=== PATIENT | female | born 1950 | race Caucasian/White ===

== ENCOUNTER 2020-02-28 16:35 | Inpatient (IN) | payer MEDICARE ==
[~2020-02-28] VITALS: Ht 165.1 cm; Wt 44.9 kg
--- NOTE | 2020-02-28 16:42 | NUR ---
Patient BIB pvt ambulance from [facility]. Patient on 5150 hold for GD. Manager Center made aware. no 1:1 sitter available. Safety precautions implented. s/r up x2. quiet environment provided. frequent visual checks done
--- NOTE | 2020-02-28 16:43 | NUR ---
Dr. Rosales at bedside for MSE
[2020-02-28] MEDS ORDERED: ZOLP5TAB8 PO (16:59)
[2020-02-28] MEDS ORDERED: SERT50TA PO (16:59)
[2020-02-28] MEDS ORDERED: LORA-258 PO (16:59)
--- NOTE | 2020-02-28 17:45 | NUR ---
Patient has been medically cleared
--- NOTE | 2020-02-28 19:00 | NUR ---
Report received from outgoing RN. Patient is resting in her rooom at this time. Side rails up x 2. Bed locked in position. Sleeping, with no signs of distress.
--- NOTE | 2020-02-28 19:35 | NUR ---
Received call from Nursing metalizing supervisor that pt will be going to MHU instead of GPS OV. Called MHU Charge to get bed, Received 141-B. Pending report while facilitating room changes in the unit. Receiving RN will call me back per Charge Nurse.
--- NOTE | 2020-02-28 20:45 | NUR ---
Followed up with U, Gave report to Mary SABILLON.
--- NOTE | 2020-02-28 21:10 | NUR ---
Manish SABILLON transferred pt to MHU via wheelchair in stable condition.
[2020-02-28] MEDS ORDERED: ACETAMINOPHEN 325 MG TABLET PO PRN (21:30)
[2020-02-28] MEDS ORDERED: MAG HYDROX/AL HYDROX/SIMETH 30 ML LIQUID UDC PO PRN (21:30)
[2020-02-28] MEDS ORDERED: CLONAZEPAM 0.5 MG TABLET PO PRN (21:30)
[2020-02-28] MEDS: METOPROLOL TARTRATE 25 MG TABLET PO SCH (21:56)
--- NOTE | 2020-02-28 22:26 | NUR ---
Admission note Admitted 69 year old female from ER. on 5150 hold up on 03/02/20 at 1250pm for GD. per hold and speaking to the , he stated that she stopped eating and drinking at home for a couple days so he called 911 and patient was brought to [facility] where they stated she was in and out of catatonic state. Upon face to face assessment, patient A/Ox2 answered question about name, but then sat with her eyes closed, not answering questions or signing paperwork. Explained all paperwork and the hold to her. Updated with patient permission. Per , he thinks it is stress because they have been caring for her parents and the same thing happened 2 years ago, he says she has not been admitted to a psychiatric hospital before. Patient was showered and brought to bed. Patient ambulated steadily, but is weak. Patient started answering some questions and ate food and took medications for elevated blood pressure. Pt educated regarding unit rules and expectations. Patient rights explained, Advisement and patient rights handbook given, Pt oriented to the unit, the phones, her room and roommate, and the bathroom. Q 15 minute safety checks initiated.
--- NOTE | 2020-02-28 23:20 | NUR ---
NSG/GPS Patient arrived to the unit from ER with a B/P of 168/110, HR 133. Physician tester electronic scale contacted, medication administered as ordered with effective outcome. B/P 145/105, HR 83. Will continue to monitor vital signs Q shift and prn.
[2020-02-29 07:55] LABS: BILIRUBIN,TOTAL 0.8 mg/dL (0.2-1.0); CREATININE 0.8 mg/dL (0.6-1.3); POTASSIUM 3.4 mmol/L (3.5-5.1); TOTAL PROTEIN, SERUM 7.7 g/dL (6.4-8.2)
[2020-02-29 08:01] VITALS: BP 145/94
[2020-02-29] MEDS: METOPROLOL TARTRATE 25 MG TABLET PO SCH ×2 (09:11→20:19)
--- NOTE | 2020-02-29 11:21 | NUR ---
Social Work Initial Discharge Planning: Per patient Nicola [phone], patient. currently living with and parents in [place]. Per patient. Nicola [phone], patient will discharge back to home with her parents and [address], [place] [address]. SW will continue to work with pt., family, and MD to ensure a safe and proper discharge plan.
--- NOTE | 2020-02-29 11:23 | NUR ---
Social Work Note/Family Contact: dimension mill worker spoke with patient's Nicola ([phone]) and collected collateral information for psychosocial assessment. Patient's Nicola ([phone]) stated that he and his recently moved to [place] and are living together with her parents. Patient's Nicola ([phone]) stated that patient can return home upon discharge [address], [place] [address]. Patient's Nicola ([phone]) stated that he has Power of Grubber for patient, dimension mill worker requested power of business attorney documents. Patient's Nicola ([phone]) stated that those documents are "currently in storage" due to move and that he will attempt to send documents. This conventional underwriter provided patient's fax and Email information to send the documents as soon as possible.
[2020-02-29] MEDS ORDERED: SERTRALINE HCL 50 MG TABLET PO SCH (13:00)
[2020-02-29] MEDS ORDERED: POTASSIUM CHLORIDE 20 MEQ TAB.PRT.SR PO ONE (13:30)
[2020-02-29 16:20] VITALS: BP 163/100
--- NOTE | 2020-02-29 21:00 | NUR ---
Received patient in the Hallway sitting in a leeann chair near the nursing station. Patient noted A/O x 1. she is calm upon approached. Pt was assisted to use the restroom. She was noted with unsteady gait. Mood is depressed, affect is flat. Pt is unable to have a meaningful conversation, her speech is low (she whispers) Pt was able to take all her QHS medication. V/S stable at this time. Pt is reassured for her safety. safety and fall precaution in place. will continue to monitor.
[2020-02-29 21:25] VITALS: BP 162/98
[2020-03-01] MEDS: TEMAZEPAM 7.5 MG CAPSULE PO PRN (00:54)
[2020-03-01 07:30] VITALS: BP 136/86
[2020-03-01] MEDS: METOPROLOL TARTRATE 25 MG TABLET PO SCH ×2 (08:52→22:21)
[2020-03-01] MEDS: SERTRALINE HCL 50 MG TABLET PO SCH (13:18)
[2020-03-01 15:14] VITALS: BP 151/93
[2020-03-01 20:42] VITALS: BP 148/87
[2020-03-01] MEDS: LORAZEPAM 0.5 MG TABLET PO PRN (22:21)
[2020-03-02 07:30] VITALS: BP 153/85
[2020-03-02] MEDS: METOPROLOL TARTRATE 25 MG TABLET PO SCH ×2 (09:33→20:12)
[2020-03-02] MEDS: LISINOPRIL 5 MG TABLET PO SCH (09:40)
[2020-03-02] MEDS: ENSURE ENLIVE (VAN) 240 ML LIQUID PO SCH ×2 (12:00→17:16)
[2020-03-02] MEDS: SERTRALINE HCL 50 MG TABLET PO SCH (13:03)
[2020-03-02 13:36] LABS: *BLOOD, URINE 2+ (NEGATIVE); *CLARITY,URINE SLIGHTLY CLOUDY (CLEAR); *COLOR,URINE YELLOW (YELLOW); *KETONES,URINE 2+ (NEGATIVE); LEUKOCYTE ESTERASE ,URINE 3+ (NEGATIVE); NITRITE, URINE NEGATIVE (NEGATIVE); UGLUCOSE TRACE (NEGATIVE)
[2020-03-02 14:57] LABS: *BILIRUBIN,URIN 2+ (NEGATIVE)
[2020-03-02 15:02] LABS: BACTERIA,URINE MODERATE /HPF (NONE SEEN); SQUAMOUS EPITHELIAL CELL,UR MODERATE /HPF (NONE SEEN)
[2020-03-02 16:00] VITALS: BP 131/76
--- NOTE | 2020-03-02 16:36 | NUR ---
called and left message to Dr. Brian Fraga regarding UA result waiting for reply will continue follow up
[2020-03-02 20:00] VITALS: BP 140/93
[2020-03-02] MEDS: LORAZEPAM 0.5 MG TABLET PO PRN (20:13)
[2020-03-02] MEDS: ATORVASTATIN 10 MG TABLET PO SCH (20:18)
[2020-03-02] MEDS: CEphaleXIN 500 MG CAPSULE PO SCH (21:08)
--- NOTE | 2020-03-03 00:15 | NUR ---
RECEIVED PATIENT IN A DANE CHAIR IN THE HALLWAY.MOOD IS DEPRESSED AND AFFECT IS FLAT.TALKS IN A LOW TONE AND NO MEANINGFUL CONVERSATION COULD BE HAD. ASSISTED TO THE RESTROOM AND GAIT IS UNSTEADY. LATER WENT TO BED BUT KEPT GETTING UP SEVERAL TIMES SHE SAYS "THE PLACE IS ON FIRE. I NEED TO GET OUT'.REASSURED SHE WAS IN SAFE HANDS.HOWEVER COMPLIANT WITH MEDICATIONS SHE TOOK THEM WITH APPLESAUCE.FALL AND SAFETY PRECAUTIONS IN PLACE.
[2020-03-03] MEDS: CEphaleXIN 500 MG CAPSULE PO SCH ×3 (06:09→21:23)
--- NOTE | 2020-03-03 06:29 | NUR ---
SHE SLEPT FOR APPROX.6:15 HOURS. MEDICATION COMPLIANT.
[2020-03-03 07:30] VITALS: BP 138/71
[2020-03-03] MEDS: ENSURE ENLIVE (VAN) 240 ML LIQUID PO SCH ×3 (08:00→17:12)
[2020-03-03] MEDS ORDERED: MEGESTROL ACETATE 400 MG/10 ML LIQUID UDC PO SCH (09:00)
[2020-03-03] MEDS: METOPROLOL TARTRATE 25 MG TABLET PO SCH ×2 (09:10→20:42)
[2020-03-03] MEDS: LISINOPRIL 5 MG TABLET PO SCH (09:11)
[2020-03-03 11:57] LABS: BASOPHILS % (AUTO) 0.3 % (0.0-2.0); EOSINOPHILS % (AUTO) 0.1 % (0.0-7.0); HEMATOCRIT 41.4 % (31.2-41.9); HEMOGLOBIN 13.8 g/dL (10.9-14.3); LYMPHOCYTES # (AUTO) 1.3 K/uL (20.0-40.0); LYMPHOCYTES % (AUTO) 15.1 % (20.5-51.5); MEAN CORPUSCULAR HEMOGLOBIN 30.9 uug (24.7-32.8); MEAN CORPUSCULAR HGB CONC 33 g/dL (32.3-35.6); MEAN CORPUSCULAR VOLUME 92.5 fL (75.5-95.3); MONOCYTES # (AUTO) 0.7 K/uL (2.0-10.0); NEUTROPHILS # (AUTO) 6.7 K/uL (1.8-8.9); NEUTROPHILS % (AUTO) 76.5 % (38.5-71.5); PLATELET COUNT (AUTO) 229 K/uL (179-408); RED BLOOD CELL COUNT(AUTO) 4.48 MIL/uL (3.63-4.92); WHITE BLOOD COUNT (AUTO) 8.8 K/uL (3.8-11.8)
[2020-03-03 11:58] LABS: CREATININE 0.9 mg/dL (0.6-1.3); MAGNESIUM 2.2 mg/dL (1.8-2.4); PHOSPHOROUS 3.6 mg/dL (2.5-4.9); POTASSIUM 3.3 mmol/L (3.5-5.1)
[2020-03-03] MEDS: SERTRALINE HCL 50 MG TABLET PO SCH (12:10)
[2020-03-03 15:06] VITALS: BP 124/76
[2020-03-03] MEDS: MEGESTROL ACETATE 20 MG TABLET PO SCH (17:12)
[2020-03-03 20:00] VITALS: BP 132/92
[2020-03-03] MEDS: ATORVASTATIN 10 MG TABLET PO SCH (20:41)
[2020-03-03] MEDS: TEMAZEPAM 7.5 MG CAPSULE PO PRN (23:19)
--- NOTE | 2020-03-04 01:33 | NUR ---
RECEIVED PATIENT IN HER ROOM. MOOD IS DEPRESSED AND AFFECT IS FLAT.TALKS IN A LOW TONE BUT SAID TO STAFF 'WHATEVER THEY TOLD YOU I SAID IT IS NOT TRUE'. SHE HOWEVER WILL NOT SAY WHAT. SHE LATER REQUESTED FOR A SLEEPING AID AT 23:20 HER ROOMMATE KEPT SNORING AND GOING BACK AND FORTH TO THE BATHROOM. SLEPT FAIRLY WELL AFTER THAT. COMPLIANT WITH MEDICATIONS. FALL AND SAFETY PRECAUTIONS IN PLACE WILL CONTINUE TO MONITOR.
[2020-03-04] MEDS: CEphaleXIN 500 MG CAPSULE PO SCH ×3 (06:19→21:50)
--- NOTE | 2020-03-04 06:48 | NUR ---
SLEPT APPROX.5:45 HOURS
[2020-03-04 08:00] VITALS: BP 97/62
[2020-03-04] MEDS: ENSURE ENLIVE (VAN) 240 ML LIQUID PO SCH ×3 (08:00→17:00)
[2020-03-04] MEDS: POTASSIUM CHLORIDE 20 MEQ TAB.PRT.SR PO ONE ×2 (08:30→09:04)
[2020-03-04] MEDS: METOPROLOL TARTRATE 25 MG TABLET PO SCH ×2 (08:55→20:28)
[2020-03-04] MEDS: MEGESTROL ACETATE 20 MG TABLET PO SCH ×3 (08:55→17:00)
[2020-03-04] MEDS: LISINOPRIL 5 MG TABLET PO SCH (08:56)
[2020-03-04] MEDS: risperiDONE-M 0.5 MG TAB.RAPDIS PO SCH ×2 (11:00→17:00)
[2020-03-04] MEDS: LORAZEPAM 0.5 MG TABLET PO SCH ×2 (11:15→17:00)
[2020-03-04] MEDS: SERTRALINE HCL 50 MG TABLET PO SCH (13:00)
--- NOTE | 2020-03-04 13:26 | NUR ---
Social Work Family Contact: piece worker spoke with patient's Nicola ([phone]) who stated that he wants patient back home upon discharge.
--- NOTE | 2020-03-04 14:00 | NUR ---
Pt is being catatonic. Pt is refusing to open her eyes. Pt's eyes were seen moving while being closed. Pt refuses her medications and food. Pt is refusing to talk. Pt was palpated, abdomen is not distended. VS are monitored.
--- NOTE | 2020-03-04 16:01 | NUR ---
Social Work Coordination of Care: This typewriter assembler contacted [facility] ([phone]) and spoke with Sharon calero who requested this typewriter assembler to fax ([phone]) patient's H & P psychiatric notes, progress notes, medication, and laboratory.
--- NOTE | 2020-03-04 16:25 | NUR ---
Social Work Coordination of Care: This film writer contacted [facility] and spoke with Mary ([phone]) admin who requested this film writer to fax ([phone]) patient's H & P psychiatric notes, progress notes, medication, and laboratory. Per Mary, she will review patient's clinicals and will contact this film writer back.
[2020-03-04 16:36] VITALS: BP 139/83
[2020-03-04] MEDS: ATORVASTATIN 10 MG TABLET PO SCH (20:28)
[2020-03-04 20:47] VITALS: BP 126/76
[2020-03-05] MEDS: CEphaleXIN 500 MG CAPSULE PO SCH ×3 (05:44→21:16)
--- NOTE | 2020-03-05 06:10 | NUR ---
GPS: Pt was catatonic through the night. Refused to open her eyes. Pt's eyes were seen moving while being closed. Pt was palpated, abdomen is not distended. this morning alert and oriented. assisted to use bathroom and back to bed. compliant with am po meds. VS are monitored. slept 7 hrs though the night.
--- NOTE | 2020-03-05 06:14 | NUR ---
patient drink use and ate some chocolate pudding.
[2020-03-05 07:30] VITALS: BP 151/88
--- NOTE | 2020-03-05 08:00 | NUR ---
received patient AOx1, patient isolative withdrawn , patient not eating her meal, patient paranoid and delusional, believes that somebody out there will kill her, seen by Dr. Patel, patient was encourage to eat and encourage to join the group, patient refused, patient compliant with medication needed prompting with taking meds,
[2020-03-05] MEDS: ENSURE ENLIVE (VAN) 240 ML LIQUID PO SCH ×3 (08:47→17:00)
[2020-03-05] MEDS: LORAZEPAM 0.5 MG TABLET PO SCH ×2 (09:25→16:24)
[2020-03-05] MEDS: METOPROLOL TARTRATE 25 MG TABLET PO SCH ×2 (09:25→20:31)
[2020-03-05] MEDS: risperiDONE-M 0.5 MG TAB.RAPDIS PO SCH (09:25)
[2020-03-05] MEDS: MEGESTROL ACETATE 20 MG TABLET PO SCH ×2 (09:26→16:24)
[2020-03-05] MEDS: LISINOPRIL 5 MG TABLET PO SCH (09:27)
[2020-03-05] MEDS: SERTRALINE HCL 50 MG TABLET PO SCH (12:19)
[2020-03-05 15:55] VITALS: BP 112/75
--- NOTE | 2020-03-05 18:28 | NUR ---
patient remain in her room and continuously isolative and withdrawn
--- NOTE | 2020-03-05 19:00 | NUR ---
RECEIVED PATIENT IN HER ROOM SEATED ON THE CHAIR, PATIENT ISOLATIVE, AND WITHDRAWN. PATIENT WAS ASKED IF SHE HAVING PAIN OR DISCOMFORT, BUT NO ANSWER, CONT TO MONITOR.
[2020-03-05 20:26] VITALS: BP 91/53
[2020-03-05] MEDS: BENZTROPINE MESYLATE 0.5 MG TABLET PO SCH (20:30)
[2020-03-05] MEDS: ATORVASTATIN 10 MG TABLET PO SCH (20:30)
[2020-03-05] MEDS ORDERED: risperiDONE-M 0.5 MG TAB.RAPDIS PO SCH (21:00)
--- NOTE | 2020-03-06 03:06 | NUR ---
PATIENT HAS EPISODES OF WEAKNESS, AND NEEDS TO BE ASSISTED BACK TO BED. V/S STABLE AT THIS TIME, PATIENT HAS A POOR PO INTAKE PART OF HER DIAGNOSIS, WILL ENCOURAGE TO EAT AND DRINK FLUIDS WHILE AWAKE AND DURING MEALS, CONT TO MONITOR.
[2020-03-06] MEDS: CEphaleXIN 500 MG CAPSULE PO SCH ×3 (05:38→21:09)
--- NOTE | 2020-03-06 06:06 | NUR ---
PATIENT AWAKE, NO COMPLAIN OF PAIN, PATIENT ASSISTED WITH TOILETING. PATIENT WENT BACK TO SLEEP, AND STAYED ON HER BED, NO FURTHER EPISODE OF WEAKNESS AT THIS TIME. CONT TO MONITOR.
[2020-03-06 07:30] VITALS: BP 102/57
[2020-03-06] MEDS: ENSURE ENLIVE (VAN) 240 ML LIQUID PO SCH ×3 (08:00→17:00)
[2020-03-06] MEDS: METOPROLOL TARTRATE 25 MG TABLET PO SCH ×2 (08:31→21:10)
[2020-03-06] MEDS: LISINOPRIL 5 MG TABLET PO SCH (09:00)
[2020-03-06] MEDS ORDERED: SERTRALINE HCL 50 MG TABLET PO SCH (09:00)
[2020-03-06] MEDS: LORAZEPAM 0.5 MG TABLET PO SCH (09:52)
[2020-03-06] MEDS: MEGESTROL ACETATE 20 MG TABLET PO SCH ×2 (09:53→17:00)
--- NOTE | 2020-03-06 11:21 | NUR ---
patient remains catatonic keeps eyes close non verbally responsive, vs taken b/p 103/65,P 78,r18 O2sat 92%.continue close monitoring.
[2020-03-06 11:52] LABS: BASOPHILS % (AUTO) 0.3 % (0.0-2.0); HEMATOCRIT 43.9 % (31.2-41.9); HEMOGLOBIN 14.6 g/dL (10.9-14.3); LYMPHOCYTES # (AUTO) 1.3 K/uL (20.0-40.0); LYMPHOCYTES % (AUTO) 12.2 % (20.5-51.5); MEAN CORPUSCULAR HEMOGLOBIN 30.7 uug (24.7-32.8); MEAN CORPUSCULAR HGB CONC 33 g/dL (32.3-35.6); MEAN CORPUSCULAR VOLUME 92.4 fL (75.5-95.3); MONOCYTES # (AUTO) 0.7 K/uL (2.0-10.0); MONOCYTES % (AUTO) 6.5 % (0.0-11.0); NEUTROPHILS # (AUTO) 8.8 K/uL (1.8-8.9); PLATELET COUNT (AUTO) 241 K/uL (179-408); RED BLOOD CELL COUNT(AUTO) 4.75 MIL/uL (3.63-4.92); WHITE BLOOD COUNT (AUTO) 10.9 K/uL (3.8-11.8)
[2020-03-06 12:04] LABS: BILIRUBIN,TOTAL 0.9 mg/dL (0.2-1.0); MAGNESIUM 2.3 mg/dL (1.8-2.4); POTASSIUM 3.4 mmol/L (3.5-5.1); TOTAL PROTEIN, SERUM 7.6 g/dL (6.4-8.2)
--- NOTE | 2020-03-06 13:22 | NUR ---
[facility] Program Contact: SW received a call from Sheron from [facility] ([phone]) who stated that after reviewing the notes that were sent for the pt they believe that the pt has been improving and should be allowed to return to her home.
--- NOTE | 2020-03-06 13:23 | NUR ---
Family Contact: ABRAN called the patient's Nicola ([phone]) and informed him that [facility] is not willing to accept the pt at this time. He stated that if [facility] believes that the pt can go home then he would like her to be discharged home. ABRAN stated that the psychiatrist from [facility] recommended a SNF. Pts stated that he wants to talk to the pt and get her consent before discharging her to a SNF. ABRAN stated that she will follow up.
[2020-03-06 16:00] VITALS: BP 119/81
[2020-03-06] MEDS ORDERED: POTASSIUM CHLORIDE 10 MEQ in IV D5/ 0.9% NACL 1,000 ML IV ONE (17:30)
[2020-03-06 20:24] VITALS: BP 134/84
[2020-03-06] MEDS: risperiDONE-M 0.5 MG TAB.RAPDIS PO SCH (21:09)
[2020-03-06] MEDS: ATORVASTATIN 10 MG TABLET PO SCH (21:09)
[2020-03-06] MEDS: BENZTROPINE MESYLATE 0.5 MG TABLET PO SCH (21:10)
--- NOTE | 2020-03-07 05:16 | NUR ---
PATIENT EYES CLOSE BUT RESPONSE TO VERBAL AND TACTILE STIMULI. REFUSED FOOD AND FLUIDS WHEN TRIED TO FEED THE PATIENT, PATIENT TOOK MOST OF THE MEDICATIONS. PATIENT ON IV HYDRATION NO COUGHING NO CHEST CONGESTION NOTED, TOLERATE WELL, CONT TO MONITOR.
[2020-03-07] MEDS: CEphaleXIN 500 MG CAPSULE PO SCH ×2 (06:24→13:33)
--- NOTE | 2020-03-07 06:48 | NUR ---
patient slept most of the night, tolerate iv hydration, no adverse reaction noted, cont to monitor.
[2020-03-07 07:30] VITALS: BP 119/77
[2020-03-07] MEDS: ENSURE ENLIVE (VAN) 240 ML LIQUID PO SCH ×3 (08:00→17:00)
[2020-03-07] MEDS: MEGESTROL ACETATE 20 MG TABLET PO SCH ×2 (08:41→16:35)
[2020-03-07] MEDS: METOPROLOL TARTRATE 25 MG TABLET PO SCH ×2 (08:42→21:12)
[2020-03-07] MEDS: LISINOPRIL 5 MG TABLET PO SCH (08:42)
--- NOTE | 2020-03-07 09:15 | NUR ---
Gps/Cash Processing Specialist-Encouraged to eat, prompted to nut picker her utensil to eat, had sips of ensure. compliant with am meds., patient interacting fairly well with staff.Safety reviewed, emphasized, bed alarm on
--- NOTE | 2020-03-07 11:22 | NUR ---
Gps/Chain Maker Machine- To CT head w/o contrast via wheel chair, pt. was well informed, ordered per Dr Patel
[2020-03-07] MEDS: DIVALPROEX SPRINKLE 125 MG CAP.SPRINK PO SCH ×2 (12:05→16:35)
[2020-03-07] MEDS: OLANZAPINE 2.5 MG TABLET PO SCH ×2 (12:05→16:35)
--- NOTE | 2020-03-07 15:40 | NUR ---
SNF Referrals: SW faxed a referral to the following two facilities: [facility] with attention to Bozena to the fax number: [phone] [facility] with attention to Paty to the fax number: [phone].
[2020-03-07 16:00] VITALS: BP 109/75
--- NOTE | 2020-03-07 17:38 | NUR ---
Gps/Senior Office Assistant- Kept patient up on her leeann-chair , stayed in her group therapy. Had been compliant with her routine meds. Ambulated to the bathroom with assist, reviewed safety, continue to monitor needs. Encouraged to feed self ind. after set up, food of her choice offered ,adequate fluid intake. Patient noted > interactions to the staff, smiles on occ.
--- NOTE | 2020-03-07 18:55 | NUR ---
Gps/Delinquent Tax Collector Assistant- Saline lock to right wrist dc'd, pt. request, baindaid applied. Bed alarm set for her bed. safety reviewed, emphasized. Noted some paranoia, pt. claimed someone is going around taking pictures ,they have small camera like a pen per pt.
[2020-03-07 20:00] VITALS: BP 105/66
[2020-03-07] MEDS: ATORVASTATIN 10 MG TABLET PO SCH (21:11)
[2020-03-07] MEDS: risperiDONE-M 0.5 MG TAB.RAPDIS PO SCH (21:12)
--- NOTE | 2020-03-08 06:27 | NUR ---
PT SLEPT 6 HOURS. PT IN NO ACUTE DISTRESS. PRESCRIBED MEDICATION GIVEN AND PT TOLERATED IT WELL. PT COOPERATIVE WITH CARE. SAFETY AND COMFORT PROVIDED. ALL NEEDS ARE MET. WILL ENDORSE TO INCOMING NURSE FOR CONTINUITY OF CARE.
[2020-03-08 07:30] VITALS: BP 132/60
[2020-03-08] MEDS: ENSURE ENLIVE (VAN) 240 ML LIQUID PO SCH ×3 (08:00→17:00)
[2020-03-08] MEDS: OLANZAPINE 2.5 MG TABLET PO SCH ×3 (08:41→16:42)
[2020-03-08] MEDS: DIVALPROEX SPRINKLE 125 MG CAP.SPRINK PO SCH ×2 (08:41→13:58)
[2020-03-08] MEDS: METOPROLOL TARTRATE 25 MG TABLET PO SCH ×2 (08:42→20:29)
[2020-03-08] MEDS: LISINOPRIL 5 MG TABLET PO SCH ×2 (08:44→14:01)
[2020-03-08] MEDS: MEGESTROL ACETATE 20 MG TABLET PO SCH ×2 (08:44→14:02)
[2020-03-08 09:08] LABS: BASOPHILS % (AUTO) 0.4 % (0.0-2.0); EOSINOPHILS % (AUTO) 0.2 % (0.0-7.0); HEMATOCRIT 37.1 % (31.2-41.9); HEMOGLOBIN 12.6 g/dL (10.9-14.3); LYMPHOCYTES # (AUTO) 1.4 K/uL (20.0-40.0); LYMPHOCYTES % (AUTO) 16.7 % (20.5-51.5); MEAN CORPUSCULAR HEMOGLOBIN 31.1 uug (24.7-32.8); MEAN CORPUSCULAR HGB CONC 34 g/dL (32.3-35.6); MEAN CORPUSCULAR VOLUME 91.9 fL (75.5-95.3); MONOCYTES # (AUTO) 0.8 K/uL (2.0-10.0); NEUTROPHILS # (AUTO) 6.1 K/uL (1.8-8.9); NEUTROPHILS % (AUTO) 73.7 % (38.5-71.5); PLATELET COUNT (AUTO) 154 K/uL (179-408); RED BLOOD CELL COUNT(AUTO) 4.04 MIL/uL (3.63-4.92); WHITE BLOOD COUNT (AUTO) 8.3 K/uL (3.8-11.8)
[2020-03-08 09:16] LABS: BILIRUBIN,TOTAL 0.7 mg/dL (0.2-1.0); CREATININE 0.9 mg/dL (0.6-1.3); MAGNESIUM 2.2 mg/dL (1.8-2.4); PHOSPHOROUS 3.3 mg/dL (2.5-4.9); POTASSIUM 3.1 mmol/L (3.5-5.1); TOTAL PROTEIN, SERUM 6.4 g/dL (6.4-8.2)
--- NOTE | 2020-03-08 10:45 | NUR ---
Gps/Exam Proctor- Texted Brayan DNP, informed of K+ 3.1 today .
[2020-03-08] MEDS ORDERED: POTASSIUM CHLORIDE 20 MEQ TAB.PRT.SR PO ONE ×2 (11:00→12:00)
--- NOTE | 2020-03-08 11:12 | NUR ---
SNF Contact: Bozena ([phone]), prevention coordinator from [facility], called the SW and stated that the pt was accepted to their facility upon discharge. SW stated that she will inform her once she has a discharge date.
--- NOTE | 2020-03-08 13:30 | NUR ---
ABRAN Group Note: ABRAN facilitated group therapy on 03/08/2020 at 1330. The group topic was discharge planning. ABRAN deemed the pt inappropriate for group programming at this time given her disorganized and confused mental state, catatonia, and selective mutism. ABRAN will continue to encourage the pt to attend group programming and engage in all aspects of treatment.
--- NOTE | 2020-03-08 14:03 | NUR ---
Gps/Manager Heart Failure- Tried to awakened pt. eyes closed, flickering , in no sign of any distress, washed face with cold wash cloth. Re -offered am routine meds., assisted with her apple juice, meds administered with apple sauce. Refusing to eat but fluids offered.Kept up on her leeann-chair by the Nurses station.
--- NOTE | 2020-03-08 15:30 | NUR ---
Gps/Screen Printing Machine Operator- Stayed up on her leeann-chair by the Nurses station , encouraged interactions with the staff. Patient's Nicola called, but patient refused to talk to him. Second dose of K+40 meq. was administered po. re offered , fluids offered and encouraged.
[2020-03-08 15:38] VITALS: BP 129/77
[2020-03-08] MEDS ORDERED: DIVALPROEX SPRINKLE 125 MG CAP.SPRINK PO SCH (17:00)
--- NOTE | 2020-03-08 18:12 | NUR ---
Gps/Necktie Stitcher- Not initiating to feed self, patient was fed , adequate fluid was given , encouraged. Ate about 50% of dinner, had 2 apple sauce with med.Eyes open from time to time answered to simple command
[2020-03-08] MEDS: ATORVASTATIN 10 MG TABLET PO SCH (20:29)
[2020-03-08 21:15] VITALS: BP 92/52
--- NOTE | 2020-03-09 00:15 | NUR ---
THIS NURSE RECEIVED HANDOFF REPORT FROM RAMANDEEP BRADSHAW. PT RECEIVED INTO CARE LAYING IN BED ASLEEP. PT HAS NO S/S OF ACUTE DISTRESS OR DISCOMFORT NOTED/OBSERVED BY THIS NURSE. ALL SAFETY, FALL, AND GPS PRECAUTIONS ARE IN PLACE. WILL CONTINUE TO MONITOR AND ASSESS.
--- NOTE | 2020-03-09 05:00 | NUR ---
Patient slept throughout night with no complaints of pain/discomfort verbalized or noted/observed by this nurse. Patient was compliant with care after this nurse received handoff from RAMANDEEP Allen. All safety, fall, and GPS/MHU precautions remain in place.
[2020-03-09 07:30] VITALS: BP 108/68
[2020-03-09] MEDS: ENSURE ENLIVE (VAN) 240 ML LIQUID PO SCH ×3 (08:00→17:00)
[2020-03-09] MEDS: MEGESTROL ACETATE 20 MG TABLET PO SCH ×2 (08:44→17:12)
[2020-03-09] MEDS: OLANZAPINE 2.5 MG TABLET PO SCH ×3 (08:46→17:12)
[2020-03-09] MEDS: METOPROLOL TARTRATE 25 MG TABLET PO SCH ×2 (08:48→22:00)
[2020-03-09] MEDS: DIVALPROEX SPRINKLE 125 MG CAP.SPRINK PO SCH ×2 (08:49→17:12)
--- NOTE | 2020-03-09 13:39 | NUR ---
Received patient this am in bed. Soft spoken and delayed with answers. Medication compliant with encouragement. Patient refused to eat breakfast. At lunch, policy writer got patient out of bed to the bathroom and then in the chair for lunch. Patient ate 75% of lunch and was given a shower afterwords. Patient has been refusing to take showers since March 02. Right after shower patient wanted to go back to bed. This patient is very isolative and withdrawn today. Monitoring for safety, behavioral issues, and encouraging food and fluid intake. No distress noted at this time, No SI or HI.
[2020-03-09 16:00] VITALS: BP 106/66
[2020-03-09 20:00] VITALS: BP 113/64
[2020-03-09] MEDS: ATORVASTATIN 10 MG TABLET PO SCH (22:25)
[2020-03-10 07:23] LABS: CREATININE 0.8 mg/dL (0.6-1.3); POTASSIUM 4.1 mmol/L (3.5-5.1)
[2020-03-10 07:30] VITALS: BP 112/53
[2020-03-10] MEDS: ENSURE ENLIVE (VAN) 240 ML LIQUID PO SCH ×3 (08:00→17:00)
[2020-03-10] MEDS: LISINOPRIL 5 MG TABLET PO SCH (08:40)
[2020-03-10] MEDS: MEGESTROL ACETATE 20 MG TABLET PO SCH ×2 (08:41→17:09)
[2020-03-10] MEDS: DIVALPROEX SPRINKLE 125 MG CAP.SPRINK PO SCH ×2 (08:41→17:09)
[2020-03-10] MEDS: METOPROLOL TARTRATE 25 MG TABLET PO SCH ×2 (08:41→20:34)
[2020-03-10] MEDS: OLANZAPINE 2.5 MG TABLET PO SCH ×3 (08:41→17:09)
[2020-03-10 12:03] LABS: *CLARITY,URINE CLOUDY (CLEAR); *COLOR,URINE YELLOW (YELLOW); *KETONES,URINE 1+ (NEGATIVE); LEUKOCYTE ESTERASE ,URINE NEGATIVE (NEGATIVE); NITRITE, URINE NEGATIVE (NEGATIVE); PH,URINE 6.5 (5.0-8.0); UGLUCOSE NEGATIVE (NEGATIVE)
[2020-03-10 12:36] LABS: *BILIRUBIN,URIN 1+ (NEGATIVE); *BLOOD, URINE TRACE (NEGATIVE)
[2020-03-10 12:37] LABS: BACTERIA,URINE FEW /HPF (NONE SEEN); SQUAMOUS EPITHELIAL CELL,UR FEW /HPF (NONE SEEN)
--- NOTE | 2020-03-10 15:58 | NUR ---
Received patient in bed pretending to be asleep and not responding to questions. Rewriter adjusted the head of the bed up and insisted patent open her eyes. Patient did and then was ambulated with assist to the bathroom, put in leeann chair and proceeded to eat 75% of the breakfast and 60% of her lunch. After that ,ambulated some more in the cowart with a walker. Patient is very withdrawn and does not engage in any meaningful conversations. Only short , basic, yes or no answers. Poor eye contact, and always wanting to be in bed sleeping. UA sent to lab per order. VS are stable and medication compliant. Monitoring for safety and changes in behavior. No acute distress at this time.
[2020-03-10 16:41] VITALS: BP 104/59
[2020-03-10 20:33] VITALS: BP 106/51
[2020-03-10] MEDS: ATORVASTATIN 10 MG TABLET PO SCH (20:34)
[2020-03-11 07:30] VITALS: BP 112/58
--- NOTE | 2020-03-11 08:00 | NUR ---
GPS: received patient AOx1, patient quiet, laying in her bed, patient having flat affect and blank stares, patient delusional and paranoid, patient refused her morning medication and had poor intake of her meals, seen by Dr. Patel , new orders made, will continue monitor
[2020-03-11] MEDS: OLANZAPINE 2.5 MG TABLET PO SCH ×3 (08:16→20:35)
[2020-03-11] MEDS: DIVALPROEX SPRINKLE 125 MG CAP.SPRINK PO SCH ×2 (08:16→09:00)
[2020-03-11] MEDS: METOPROLOL TARTRATE 25 MG TABLET PO SCH ×2 (08:17→20:35)
[2020-03-11] MEDS: LISINOPRIL 5 MG TABLET PO SCH (08:17)
[2020-03-11] MEDS: MEGESTROL ACETATE 20 MG TABLET PO SCH ×3 (08:18→16:16)
[2020-03-11] MEDS: ENSURE ENLIVE (VAN) 240 ML LIQUID PO SCH ×3 (08:19→17:16)
--- NOTE | 2020-03-11 11:14 | NUR ---
Family Contact: Patient's Nicola ([phone]) called the SW and stated that he knows that the pt is showing improvement and that he does not want to bring her home at this time and halt the progress. Pts stated that he understands that she needs to be admitted to a SNF and that it will be temporary so if [place].
[2020-03-11 12:31] LABS: BASOPHILS % (AUTO) 0.3 % (0.0-2.0); EOSINOPHILS % (AUTO) 0.6 % (0.0-7.0); HEMATOCRIT 36.7 % (31.2-41.9); HEMOGLOBIN 12.2 g/dL (10.9-14.3); MEAN CORPUSCULAR HEMOGLOBIN 30.9 uug (24.7-32.8); MEAN CORPUSCULAR HGB CONC 33 g/dL (32.3-35.6); MEAN CORPUSCULAR VOLUME 92.9 fL (75.5-95.3); MONOCYTES # (AUTO) 0.8 K/uL (2.0-10.0); MONOCYTES % (AUTO) 10.9 % (0.0-11.0); NEUTROPHILS # (AUTO) 5.3 K/uL (1.8-8.9); NEUTROPHILS % (AUTO) 74.2 % (38.5-71.5); PLATELET COUNT (AUTO) 173 K/uL (179-408); RED BLOOD CELL COUNT(AUTO) 3.96 MIL/uL (3.63-4.92); WHITE BLOOD COUNT (AUTO) 7.1 K/uL (3.8-11.8)
[2020-03-11 12:44] LABS: BILIRUBIN,TOTAL 0.4 mg/dL (0.2-1.0); CREATININE 0.9 mg/dL (0.6-1.3); POTASSIUM 4.1 mmol/L (3.5-5.1); TOTAL PROTEIN, SERUM 6.2 g/dL (6.4-8.2)
[2020-03-11 16:00] VITALS: BP 102/60
--- NOTE | 2020-03-11 16:26 | NUR ---
PATIENT TOOK MEDICATION IN THE AFTERNOON, PATIENT CONTINUOS TO BE ISOLATIVE AND WITHDRAWN
--- NOTE | 2020-03-11 18:21 | NUR ---
patient ate her dinner, no distress at this time
[2020-03-11 20:00] VITALS: BP 116/58
[2020-03-11] MEDS ORDERED: DIVALPROEX SPRINKLE 125 MG CAP.SPRINK PO SCH (20:00)
--- NOTE | 2020-03-11 20:30 | NUR ---
received patient in bed, asleep but easily arousable, patient took all po medications. patient still isolative, refused to participate with activity, cont to monitor.
[2020-03-11] MEDS: ATORVASTATIN 10 MG TABLET PO SCH (20:35)
--- NOTE | 2020-03-12 06:35 | NUR ---
patient slept most of the night, remains calm thru the night, cont to monitor.
[2020-03-12 07:30] VITALS: BP 130/73
[2020-03-12] MEDS: MEGESTROL ACETATE 20 MG TABLET PO SCH ×2 (08:28→16:50)
[2020-03-12] MEDS: ENSURE ENLIVE (VAN) 240 ML LIQUID PO SCH ×3 (08:28→16:51)
[2020-03-12] MEDS: METOPROLOL TARTRATE 25 MG TABLET PO SCH ×2 (08:29→20:30)
[2020-03-12] MEDS: LISINOPRIL 5 MG TABLET PO SCH (08:29)
--- NOTE | 2020-03-12 14:32 | NUR ---
Family Contact: SW called the patient's Nicola ([phone]) and inquired about whether or not the pt was accepted to [facility]. He provided the SW with the number for the person he was in contact with, Jos ([phone]), and the SW left a voicemail.
[2020-03-12 15:16] VITALS: BP 103/61
[2020-03-12 20:00] VITALS: BP 101/60
[2020-03-12] MEDS: OLANZAPINE 2.5 MG TABLET PO SCH (20:29)
[2020-03-12] MEDS: ATORVASTATIN 10 MG TABLET PO SCH (20:33)
--- NOTE | 2020-03-12 23:06 | NUR ---
Received pt sleeping comfortably in bed. Aroused easily to verbal stimuli. No acute distress noted. Denies pain/ discomfort. Pt took zyprexa PO, but refused Lipitor. Pt stated that she does not take cholesterol meds. Risks and benefits explained, pt still refused. Lopressor held due to decreased BP. Safety measures maintained. Will continue to monitor.
[2020-03-13 06:53] LABS: BASOPHILS % (AUTO) 0.4 % (0.0-2.0); EOSINOPHILS # (AUTO) 0.1 K/uL (0.0-0.7); EOSINOPHILS % (AUTO) 1.3 % (0.0-7.0); HEMATOCRIT 31.9 % (31.2-41.9); LYMPHOCYTES # (AUTO) 1.7 K/uL (20.0-40.0); LYMPHOCYTES % (AUTO) 24.6 % (20.5-51.5); MEAN CORPUSCULAR HEMOGLOBIN 31.5 uug (24.7-32.8); MEAN CORPUSCULAR HGB CONC 35 g/dL (32.3-35.6); MEAN CORPUSCULAR VOLUME 91.4 fL (75.5-95.3); MONOCYTES # (AUTO) 0.6 K/uL (2.0-10.0); MONOCYTES % (AUTO) 9.1 % (0.0-11.0); NEUTROPHILS # (AUTO) 4.5 K/uL (1.8-8.9); NEUTROPHILS % (AUTO) 64.6 % (38.5-71.5); PLATELET COUNT (AUTO) 197 K/uL (179-408); RED BLOOD CELL COUNT(AUTO) 3.49 MIL/uL (3.63-4.92); WHITE BLOOD COUNT (AUTO) 6.9 K/uL (3.8-11.8)
[2020-03-13 07:13] LABS: BILIRUBIN,TOTAL 0.4 mg/dL (0.2-1.0); CREATININE 0.7 mg/dL (0.6-1.3); MAGNESIUM 1.9 mg/dL (1.8-2.4); PHOSPHOROUS 4.2 mg/dL (2.5-4.9); POTASSIUM 3.8 mmol/L (3.5-5.1); TOTAL PROTEIN, SERUM 5.9 g/dL (6.4-8.2)
[2020-03-13 07:30] VITALS: BP 113/66
[2020-03-13 07:31] LABS: THYROID STIMULATING HORMONE 1.868 mIU/mL (0.358-3.740)
[2020-03-13] MEDS: MEGESTROL ACETATE 20 MG TABLET PO SCH ×3 (08:32→17:00)
[2020-03-13] MEDS: METOPROLOL TARTRATE 25 MG TABLET PO SCH ×3 (08:33→21:00)
[2020-03-13] MEDS: LISINOPRIL 5 MG TABLET PO SCH (08:33)
[2020-03-13] MEDS: ENSURE ENLIVE (VAN) 240 ML LIQUID PO SCH ×3 (08:34→17:22)
--- NOTE | 2020-03-13 09:00 | NUR ---
patient yecenia garnett stated she eats alaayush, medication wasted per facility policy Addendum: 03/13/20 at 1620 by LEYDA BROWN RN, RN lisinopril wasted as well, not administered for blood pressure i Addendum: 03/13/20 at 1622 by LEYDA BROWN RN, RN error in documenting, lisinopril is administered, metorprolol is not administered, returned to pharmacy
--- NOTE | 2020-03-13 13:24 | NUR ---
Family Contact: ABRAN called the patient's Nicola ([phone]) and informed him that the SW has been unable to make contact with Michele at [facility]. He stated that he will follow up and provide the SW phone number to the facility.
--- NOTE | 2020-03-13 15:56 | NUR ---
Family Contact: SW called the patient's Nicola ([phone]) and informed him that the pt is not being discharged tomorrow because there is no discharge order.
[2020-03-13 16:00] VITALS: BP 136/74
--- NOTE | 2020-03-13 18:41 | NUR ---
no distress noted, denied suicidal thoughts, compliant with meds
--- NOTE | 2020-03-13 19:29 | NUR ---
report given to night nurse
[2020-03-13] MEDS ORDERED: OLANZAPINE 2.5 MG TABLET PO SCH (20:00)
[2020-03-13 20:35] VITALS: BP 123/62
[2020-03-13] MEDS: ATORVASTATIN 10 MG TABLET PO SCH (21:00)
--- NOTE | 2020-03-14 06:21 | NUR ---
Pt slept 8.0 hrs. On BRP with standby assistance. Stayed in bed through the night. Refused night medications, explained the importance. Offered 2x but still refused, saying she will need to discuss these medications with her and doctor.
[2020-03-14 07:30] VITALS: BP 124/72
[2020-03-14] MEDS: ENSURE ENLIVE (VAN) 240 ML LIQUID PO SCH ×2 (08:00→12:00)
[2020-03-14] MEDS: MEGESTROL ACETATE 20 MG TABLET PO SCH (08:33)
[2020-03-14] MEDS: METOPROLOL TARTRATE 25 MG TABLET PO SCH (08:33)
[2020-03-14] MEDS: LISINOPRIL 5 MG TABLET PO SCH (08:34)
--- NOTE | 2020-03-14 09:45 | NUR ---
Gps/Hi Lo Driver- Noted patient eating better, but refused to drink ensure, claimed she had enough of it. Compliant with am routine meds. Patient ambulating on the hallway, w/o any devices, gait fairly steady . Encouraged to attend her group therapy, fairly interactive when engaged , smiles at times
--- NOTE | 2020-03-14 12:41 | NUR ---
Family Contact: SW called the patient's Nicola ([phone]) and informed him that the pt can be discharged either today or tomorrow and the pts stated that he will arrive to the unit tomorrow at around 11AM.
--- NOTE | 2020-03-14 12:52 | NUR ---
Family Contact: Patient's Nicola ([phone]) called the SW back and stated that he was able to find someone to cover for him so he will come down and picker the pt today at around 5-6pm.
--- NOTE | 2020-03-14 14:14 | NUR ---
Gps/Social Work Msw- Called Nicola ( @ [phone]) clarify if patient is getting the same medications at home , claimed he does not remember, patient manage own medications. Asked patient per , Salud claimed she never taken any medications at home before, (reviewed routine medications ) Per ok to use [facility] [address] [place] [address]. [id number] .
--- NOTE | 2020-03-14 14:17 | NUR ---
Physician Contact: ABRAN called Dr. Riggs ([phone]) and spoke to him directly about scheduling an appointment for the pt post discharge. He stated that he is aware of this patient and will cindy the patient an appointment for the following week as soon as the pts or the pt herself call to schedule the appointment.
[2020-03-14 15:31] VITALS: BP 105/59
[2020-03-14] MEDS ORDERED: METO25TA6 PO (15:53)
[2020-03-14] MEDS ORDERED: MEGE20TA5 PO (15:53)
[2020-03-14] MEDS ORDERED: LISI-607 PO (15:53)
[2020-03-14] MEDS ORDERED: ATOR10TA PO (15:53)
--- NOTE | 2020-03-14 16:09 | NUR ---
Discharge Note: Pt was discharged to her home located at [address] , [place] [address]; . Pt was picked up by her , Nicola ([phone]), around 5-6pm. Upon discharge, the pt appeared to be in a euthymic mood and presented with a calm affect. Pt appeared to be alert and oriented x4 (time, place, self and situation). Pt denied both suicidal and homicidal ideation as well as auditory and visual hallucinations. Pt appeared to be ambulatory with a steady gait and appeared to be well groomed and dressed. Pt will be under the care of her psychiatrist, Dr. Riggs, located at [address] [place] [address]; ([phone]); fax: ([phone]). SW spoke to the MD himself and he stated that he is aware of this pt and would like the pt to call to make the appointment for next week. He stated that he will provide her with an appointment for the following week once he receives a call. Pt will also be under the care of her humanities instructor, Dr. Brown, located at [address] [place], [address]; ; fax: ([phone]). Pt has an appointment for 03/29/20 at 9AM.
--- NOTE | 2020-03-14 16:42 | NUR ---
Gps/Alba Petersen () in to chart picker patient, reviewed discharge instructions, safety emphasized,skin care, nutritional needs, prescriptions/medications , safety emphasized, as well as follow up with her Doctors (Coal Mine Inspector and Psychiatrist as recommended) Both verbalized understanding.All belonging given back to patient. In good spirit with no new complaints noted.
== END 2020-03-14 16:48 | disposition home or self-care (01) | DRG 885 ==
LOC: ER 16:40 → GPS 20:49
PROVIDERS: ADMIT Psychiatry & Neurology Psychosomatic Medicine; ATTEND Internal Medicine
DX: F33.3 Major depressive disorder, recurrent, severe with psychotic symptoms (principal); N17.0 Acute kidney failure with tubular necrosis; Z68.1 Body mass index [BMI] 19.9 or less, adult; N39.0 Urinary tract infection, site not specified; E87.0 Hyperosmolality and hypernatremia; E44.0 Moderate protein-calorie malnutrition; E78.5 Hyperlipidemia, unspecified; E87.6 Hypokalemia; M81.0 Age-related osteoporosis without current pathological fracture; M19.90 Unspecified osteoarthritis, unspecified site; R62.7 Adult failure to thrive; I10 Essential (primary) hypertension; Z86.73 Personal history of transient ischemic attack (TIA), and cerebral infarction without residual deficits; F41.9 Anxiety disorder, unspecified; F03.90 Unspecified dementia, unspecified severity, without behavioral disturbance, psychotic disturbance, mood disturbance, and anxiety; M62.50 Muscle wasting and atrophy, not elsewhere classified, unspecified site; M85.80 Other specified disorders of bone density and structure, unspecified site; F39 Unspecified mood [affective] disorder; E86.1 Hypovolemia
CPT/HCPCS: 36415; 70450; 71045; 83735; 84100; 84443; 85025; 87086; 93005; J3480; J7042; J8999

== ENCOUNTER 2021-11-07 23:42 | Inpatient (IN) | payer MEDICARE ==
[~2021-11-07] VITALS: Ht 165.1 cm; Wt 44.9 kg
[~2021-11-07 23:42] MED LIST: ATOR10TA PO; LISI-782 PO; MEGE20TA4 PO; METO25TA6 PO
--- NOTE | 2021-11-07 23:50 | NUR ---
Pt BIB ambulance for Medical Clearence. No s/s distress. Denies SOB or chest pain. Able to ambulate without assistance.
--- NOTE | 2021-11-07 23:55 | NUR ---
Dr. Wilkes at bedside for MSE
--- NOTE | 2021-11-08 02:13 | NUR ---
Report given to Hilario JEAN
--- NOTE | 2021-11-08 03:36 | NUR ---
Pt. admitted to MHU bed 145B, under care of Dr. Lizarraga and Stu HILL. Belongs List completed Transported via wheelchair. No acute distress noted. Denies pain or SOB. LOC unchanged.
[2021-11-08 04:05] VITALS: BP 140/76
[2021-11-08] MEDS ORDERED: TEMAZEPAM 7.5 MG CAPSULE PO PRN (04:15)
[2021-11-08] MEDS ORDERED: ACETAMINOPHEN 325 MG TABLET PO PRN (04:15)
[2021-11-08] MEDS ORDERED: CLONAZEPAM 0.5 MG TABLET PO SCH (04:15)
[2021-11-08] MEDS ORDERED: MAG HYDROX/AL HYDROX/SIMETH 30 ML LIQUID UDC PO PRN (04:15)
[2021-11-08] MEDS ORDERED: MAGNESIUM HYDROXIDE 30 ML LIQUID UDC PO PRN (04:15)
[2021-11-08] MEDS ORDERED: CLONAZEPAM 0.5 MG TABLET PO PRN (05:36)
--- NOTE | 2021-11-08 07:20 | NUR ---
received from the emergency room on a 72 hour hold for gravely disabled. according to the hold and chart, pt awoled from home. found her undressed from the waist down on an overpass. per spouse, 6 days prior, she had a mental breakdown, with severe anxiety, and auditory and visual hallucinations. Upon arrival, she wa salert and oriented x 3, but wanted to sleep, and would not cooperate with admission, or sign any papers.
[2021-11-08 07:30] VITALS: BP 150/76
--- NOTE | 2021-11-08 08:00 | NUR ---
Gps/Blow Torch Burner- Received patient in bed , awake, in no sign of any distress, flat affect, not interactive , answers to simple yes and no. Fluids offered , encouraged. has poor intake, no appetite per pt. Denies any plan to hurt self , flat guarded . Refusing to get oob,
[2021-11-08 16:00] VITALS: BP 155/86
[2021-11-08 20:00] VITALS: BP 158/83
[2021-11-08] MEDS: OLANZAPINE 5 MG TABLET PO SCH (20:35)
--- NOTE | 2021-11-09 06:53 | NUR ---
GPS: Remain confused and disoriented but cooperative with meds and care. occ wonder around in the unit. slept 5.30 hrs through the night.
[2021-11-09 08:14] VITALS: BP 158/94
[2021-11-09 08:25] LABS: BILIRUBIN,TOTAL 0.6 mg/dL (0.2-1.0); CREATININE 0.9 mg/dL (0.6-1.3); POTASSIUM 3.2 mmol/L (3.5-5.1); TOTAL PROTEIN, SERUM 6.7 g/dL (6.4-8.2)
--- NOTE | 2021-11-09 09:31 | NUR ---
Gps/Student Accounts Coordinator- In bed , not interactive, eyes closed flickering, refusing to talk., guarded . Refused breakfast, fluids offered and encouraged.
[2021-11-09] MEDS ORDERED: POTASSIUM CHLORIDE 20 MEQ TAB.PRT.SR PO ONE (10:00)
[2021-11-09] MEDS ORDERED: POTASSIUM CHLORIDE 20 MEQ TAB.PRT.SR PO SCH (10:15)
--- NOTE | 2021-11-09 12:46 | NUR ---
Gps/Alba Petersen (pt's ) called wants to visit patient, this pm, informed patient had been quiet, not interactive, refusing to eat, refusing to open eye, refusing to eat, offered to be fed , refused, no interactions noted
[2021-11-09] MEDS: METOPROLOL TARTRATE 25 MG TABLET PO SCH ×2 (13:54→21:26)
--- NOTE | 2021-11-09 13:55 | NUR ---
Gps/Drilling Manager- Trying to get oob, ambulated to the bathroom gait unsteady, encouraged to open her eyes, voided, assisted patient with her ensure was able to consumed , enc. to feed self, fed with apple sauce. Continent of her bladder
[2021-11-09] MEDS: LISINOPRIL 5 MG TABLET PO SCH (13:59)
[2021-11-09 14:40] VITALS: BP 119/63
[2021-11-09 17:03] VITALS: BP 119/63
[2021-11-09] MEDS: MEGESTROL ACETATE 20 MG TABLET PO SCH (17:04)
[2021-11-09 20:22] VITALS: BP 132/66
[2021-11-09] MEDS: OLANZAPINE 5 MG TABLET PO SCH (21:26)
[2021-11-09] MEDS: ATORVASTATIN 10 MG TABLET PO SCH (21:27)
[2021-11-10 08:06] VITALS: BP 142/79
[2021-11-10] MEDS: METOPROLOL TARTRATE 25 MG TABLET PO SCH ×2 (08:50→21:54)
[2021-11-10] MEDS: MEGESTROL ACETATE 20 MG TABLET PO SCH ×2 (08:50→16:46)
[2021-11-10] MEDS: LISINOPRIL 5 MG TABLET PO SCH (08:51)
[2021-11-10 11:13] LABS: HEMATOCRIT 38.3 % (31.2-41.9); MEAN CORPUSCULAR HEMOGLOBIN 31.5 uug (24.7-32.8); MEAN CORPUSCULAR VOLUME 93.9 fL (75.5-95.3); PLATELET COUNT (AUTO) 239 K/uL (179-408)
[2021-11-10 13:07] LABS: BILIRUBIN,TOTAL 0.5 mg/dL (0.2-1.0); CREATININE 0.7 mg/dL (0.6-1.3); POTASSIUM 3.5 mmol/L (3.5-5.1); TOTAL PROTEIN, SERUM 6.8 g/dL (6.4-8.2)
[2021-11-10 13:31] LABS: THYROID STIMULATING HORMONE 1.672 mIU/mL (0.358-3.740)
--- NOTE | 2021-11-10 14:44 | NUR ---
ABRAN Initial Discharge Plan: Pt was brought to [facility] on a 5150 hold due to increased paranoia, auditory and visual hallucinations. ABRAN contacted pt's , Nicola [phone] who stated that pt will return home under his care. Nicola stated he will provide transportation for the pt upon discharge. Nicola stated he will be looking for an outpatient psychiatrist and does not require the SW's assistance with with outpatient therapeutic services upon discharge. ABRAN will continue to work with pt, family and MD to ensure a safe and proper discharge plan.
--- NOTE | 2021-11-10 14:45 | NUR ---
ABRAN Admit Source: Pt was brought to [facility] on a 5150 hold due to increased paranoia, auditory and visual hallucinations. ABRAN contacted pt's , Nicola [phone] who stated that pt will return home under his care. Nicola stated he will provide transportation for the pt upon discharge. Nicola stated he will be looking for an outpatient psychiatrist and does not require the SW's assistance with with outpatient therapeutic services upon discharge. ABRAN will continue to work with pt, family and MD to ensure a safe and proper discharge plan.
[2021-11-10 16:14] VITALS: BP 131/74
[2021-11-10] MEDS: ENSURE ENLIVE (VAN) 240 ML LIQUID PO SCH (16:47)
--- NOTE | 2021-11-10 19:08 | NUR ---
GPS: Nursing Notes: Thought Disorder: Patient is awake and responding to his name, selectively mute, compliant with her medications, refusing her to participate in therapeutic groups, refusing her CT scan of the head, refusing straight cath, resistant with nursing care, ambulatory by self, paranoid behavior, flat affect, unable to formulate a viable plan for self care, continue with treatment plan.
[2021-11-10 20:21] VITALS: BP 142/75
[2021-11-10] MEDS: ATORVASTATIN 10 MG TABLET PO SCH (21:54)
[2021-11-10] MEDS: OLANZAPINE 5 MG TABLET PO SCH (21:54)
--- NOTE | 2021-11-11 02:10 | NUR ---
VISUAL CHECKS AND ROUNDS MADE, PATIENT IS COMFORTABLY SLEEPING. WILL CONTINUE TO MONITOR.
[2021-11-11 08:00] VITALS: BP 125/71
[2021-11-11] MEDS: LISINOPRIL 5 MG TABLET PO SCH (08:53)
[2021-11-11] MEDS: MEGESTROL ACETATE 20 MG TABLET PO SCH ×2 (08:54→16:57)
[2021-11-11] MEDS: METOPROLOL TARTRATE 25 MG TABLET PO SCH ×2 (08:54→21:59)
[2021-11-11] MEDS: ENSURE ENLIVE (VAN) 240 ML LIQUID PO SCH ×3 (08:55→16:56)
[2021-11-11 16:50] VITALS: BP 115/64
--- NOTE | 2021-11-11 17:40 | NUR ---
GPS: Nursing Notes: Thought Disorder: Patient is awake and responding to her name, selectively mute, episodes of eating by self, other times, she is a feeder, catatonic behavior, answering questions with delay answer of yes or no, refusing to participate in therapeutic groups, isolative and withdrawn in her room, no interactions with peers or staff, episode of covering her head with her blanket, internally preoccupied, continue to monitor for safety, unable to formulate a viable plan for self care, continue with treatment plan.
--- NOTE | 2021-11-11 18:37 | NUR ---
GPS: Nursing Notes: Refusing CT Scan and Straight Cath: Patient refusing CT scan of the head and straight cath. for urine, resistant with nursing care, continue with paranoid behavior, uncooperative with nursing care, refusing to talk to the too, continue to monitor for safety, continue with treatment plan.
[2021-11-11 20:22] VITALS: BP 128/66
[2021-11-11] MEDS: ATORVASTATIN 10 MG TABLET PO SCH (21:59)
[2021-11-11] MEDS: OLANZAPINE 2.5 MG TABLET PO SCH (22:25)
[2021-11-11] MEDS ORDERED: OLANZAPINE 5 MG TABLET ONE (22:29)
--- NOTE | 2021-11-12 03:44 | NUR ---
Received to care, lying in bed, staring straight ahead, initially non interactive. Refused her medications at bedtime, and stated that this rfp writer was making her hallucinate by giving her these medications. reality orientation was attempted, but she remains fixed in her beliefs. Fine tremors noted to upper extremities. One episode of getting out of bed was observed. She was directed to the bathroom, and went back to sleep. No distress noted, at this time.
[2021-11-12 07:30] VITALS: BP 128/70
[2021-11-12] MEDS: MEGESTROL ACETATE 20 MG TABLET PO SCH ×2 (09:00→17:00)
[2021-11-12] MEDS: ENSURE ENLIVE (VAN) 240 ML LIQUID PO SCH ×3 (09:00→17:00)
[2021-11-12] MEDS: LISINOPRIL 5 MG TABLET PO SCH (09:00)
[2021-11-12] MEDS: METOPROLOL TARTRATE 25 MG TABLET PO SCH ×3 (09:00→21:00)
--- NOTE | 2021-11-12 15:43 | NUR ---
Received patient sleeping in her room. A/O X 2 to person, place. Pt. is catatonic, sleepy, refusing medications, isolative, quiet, withdrawn, flat. Pt. appearance is age appropriate. Pt. ambulates independently. Requires more than minimal assistance with ADL when confused. Denies SI/HI AH/VH. Pt. is continent with bowel and bladder. Reality orientation provided. Fall and safety precautions implemented.
[2021-11-12 16:00] VITALS: BP 141/83
[2021-11-12 20:00] VITALS: BP 143/71
[2021-11-12] MEDS: ATORVASTATIN 10 MG TABLET PO SCH ×2 (20:34→21:00)
[2021-11-12] MEDS: OLANZAPINE 2.5 MG TABLET PO SCH ×2 (20:34→21:00)
--- NOTE | 2021-11-12 22:00 | NUR ---
Patient refused all her [facility] medications including Zyprexa. Multiple attempts were given yet she continue refusing every time. The importance of compiling with her medication regiment to improved her symptoms were discussed with patient yet refused. she continue selectively mute. she was able to drink a glass of milk and some beba crackers . will continue to monitor.
[2021-11-13 07:30] VITALS: BP 168/92
[2021-11-13] MEDS: MEGESTROL ACETATE 20 MG TABLET PO SCH ×2 (09:06→18:20)
[2021-11-13] MEDS: ENSURE ENLIVE (VAN) 240 ML LIQUID PO SCH ×3 (09:07→17:00)
[2021-11-13] MEDS: LISINOPRIL 5 MG TABLET PO SCH (09:07)
[2021-11-13] MEDS: METOPROLOL TARTRATE 25 MG TABLET PO SCH ×3 (09:18→21:00)
--- NOTE | 2021-11-13 10:12 | NUR ---
Firearms Report: Criminal Lawyer completed and submitted a [employer] firearms report for 5150 be unable to take care of your own food clothing or half-way certifications. A copy of report has been placed in patient chart.
--- NOTE | 2021-11-13 13:00 | NUR ---
Gps/Child Care Supervisor- Remains in bed in her room , not interactive, called wants to talk to patient, informed patient not interacting, will not open her eye , no distress. refusing routine meds. Monitored safety
[2021-11-13 16:00] VITALS: BP 151/70
--- NOTE | 2021-11-13 16:27 | NUR ---
GPS: PT HAD A COURT HEARING TODAY AND REFUSED TO ATTEND. PER ELEMENTARY SCHOOL TEACHER'S AIDE, PT 14 DAY HOLD PROBABLE CAUSE DUE TO GRAVE DISABILITY.
[2021-11-13 20:00] VITALS: BP 127/66
[2021-11-13] MEDS: OLANZAPINE 2.5 MG TABLET PO SCH ×2 (20:32→21:00)
[2021-11-13] MEDS: ATORVASTATIN 10 MG TABLET PO SCH ×2 (20:32→21:00)
--- NOTE | 2021-11-13 21:31 | NUR ---
received patient in her room in bed. she is noted awake.A/O x 2. Pt refused to talk to this insurance underwriter, She stated, "I want to be alone". her mood is low, she appears depressed. affect is flat. poor eye contact. poor historian. she refused all her [facility] medication at this time. pt is hard to redirect. will continue to offer. Pt. is reassured for her safety. safety and fall precaution are in place. V/S stable. PO fluids and snacks were given. Will continue to monitor,
--- NOTE | 2021-11-13 22:15 | NUR ---
Patient refused all her[facility] medications, including Zyprexa. The importance of medication compliant to improve her symptoms were discussed with patient yet refused. Will continue to monitor.
[2021-11-14 07:30] VITALS: BP 123/73
[2021-11-14] MEDS: ENSURE ENLIVE (VAN) 240 ML LIQUID PO SCH ×3 (09:00→17:00)
--- NOTE | 2021-11-14 10:45 | NUR ---
Gps/Back Roll Lathe Operator- Tends to isolate self , flat , guarded , was able to interact simple words this am, sitting at the edge of bed, re offered routine am meds., fluids encouraged
[2021-11-14] MEDS: LISINOPRIL 5 MG TABLET PO SCH (10:56)
[2021-11-14] MEDS: METOPROLOL TARTRATE 25 MG TABLET PO SCH ×2 (10:57→20:20)
[2021-11-14] MEDS: MEGESTROL ACETATE 20 MG TABLET PO SCH ×2 (10:58→16:25)
[2021-11-14 16:00] VITALS: BP 120/74
[2021-11-14 20:03] VITALS: BP 109/64
[2021-11-14] MEDS: ATORVASTATIN 10 MG TABLET PO SCH (20:20)
[2021-11-14] MEDS: OLANZAPINE 2.5 MG TABLET PO SCH (20:20)
[2021-11-15 08:11] VITALS: BP 122/69
[2021-11-15] MEDS: MEGESTROL ACETATE 20 MG TABLET PO SCH ×2 (08:41→16:42)
[2021-11-15] MEDS: METOPROLOL TARTRATE 25 MG TABLET PO SCH ×2 (08:42→20:36)
[2021-11-15] MEDS: LISINOPRIL 5 MG TABLET PO SCH (08:42)
[2021-11-15] MEDS: ENSURE ENLIVE (VAN) 240 ML LIQUID PO SCH ×3 (08:48→16:42)
--- NOTE | 2021-11-15 13:37 | NUR ---
GPS: Nursing Notes: Thought Disorder: Patient is awake and responding to her name, isolative, withdrawn in her room, no interactions with peers, selectively mute, refusing to participate in therapeutic groups, gets easily irritable when redirected, unkempt appearance, unable to formulate a viable plan for self care, depressed mood and flat affect, continue to monitor for safety, poor appetite, continue with treatment plan.
[2021-11-15 16:12] VITALS: BP 128/69
[2021-11-15 20:00] VITALS: BP 120/61
[2021-11-15] MEDS: OLANZAPINE 2.5 MG TABLET PO SCH (20:35)
[2021-11-15] MEDS: ATORVASTATIN 10 MG TABLET PO SCH (20:35)
--- NOTE | 2021-11-16 03:42 | NUR ---
Received patient in her bed with the covers over her head. This patient would not open her eyes or give any verbal responses. A poor intake of food and fluid noted. VS are stable at this time. Patient isolative , selectively mute and withdrawn. Safety stratiges are in place. Filament Tester will continue to offer fluids and snacks and encourage patient to verbalize her needs.
[2021-11-16 08:05] VITALS: BP 117/62
[2021-11-16] MEDS: MEGESTROL ACETATE 20 MG TABLET PO SCH ×2 (08:24→16:30)
[2021-11-16] MEDS: METOPROLOL TARTRATE 25 MG TABLET PO SCH ×2 (08:25→20:20)
[2021-11-16] MEDS: LISINOPRIL 5 MG TABLET PO SCH (08:26)
[2021-11-16] MEDS: ENSURE ENLIVE (VAN) 240 ML LIQUID PO SCH ×3 (08:26→16:30)
--- NOTE | 2021-11-16 12:27 | NUR ---
GPS: Nursing Notes: Thought Disorder: Patient is awake and responding to her name by opening her eyes when calling her name, selectively mute, catatonic behavior, poor appetite, refusing to eat, resistant with nursing care, refusing to talk to her on the phone, refusing to answer any questions at this time, failure to thrive, refusing to participate in therapeutic groups, place on the leeann chair near the nursing station for close observation, encourage fluids intake, unable to formulate a viable plan for self care, continue to monitor for safety, continue with treatment plan.
[2021-11-16 16:14] VITALS: BP 123/75
[2021-11-16 19:34] VITALS: BP 147/69
[2021-11-16] MEDS: ATORVASTATIN 10 MG TABLET PO SCH (20:19)
[2021-11-16] MEDS: OLANZAPINE 2.5 MG TABLET PO SCH (20:20)
[2021-11-17 08:00] VITALS: BP 121/59
[2021-11-17] MEDS: LISINOPRIL 5 MG TABLET PO SCH (08:33)
[2021-11-17] MEDS: MEGESTROL ACETATE 20 MG TABLET PO SCH ×2 (08:34→17:37)
[2021-11-17] MEDS: METOPROLOL TARTRATE 25 MG TABLET PO SCH ×2 (08:34→20:24)
[2021-11-17] MEDS: ENSURE ENLIVE (VAN) 240 ML LIQUID PO SCH ×3 (09:00→17:38)
[2021-11-17] MEDS: OLANZAPINE 5 MG TABLET PO SCH ×2 (09:15→17:37)
--- NOTE | 2021-11-17 15:56 | NUR ---
Received patient sleeping in her room. A/O X 1 -2 to person. Patient is catatonic most of the time, does not engage in conversations, isolative, withdrawn, flat. Compliant with medications. Pt. appearance is unkept and disheveled. Vital signs within normal limits. No frowning, facial grimaces, or restlessness indicating distress or pain. Denies SI/HI AH/VH. Requires more than minimal assistance with ADL, requires frequent prompts. Continent of bladder and bowel. Pt. is encourage to verbalize concerns. Fall and safety precautions implemented.
[2021-11-17 16:47] VITALS: BP 109/58
[2021-11-17 19:56] VITALS: BP 104/56
[2021-11-17] MEDS: ATORVASTATIN 10 MG TABLET PO SCH (20:24)
--- NOTE | 2021-11-18 06:58 | NUR ---
Patient stayed in bed, goes to toilet for bladder elimination, no complain of pain, cooperative with care, calm cont to monitor.
[2021-11-18 07:30] VITALS: BP 120/61
[2021-11-18 08:19] LABS: HEMATOCRIT 36.6 % (31.2-41.9); MEAN CORPUSCULAR HEMOGLOBIN 31.7 uug (24.7-32.8); MEAN CORPUSCULAR VOLUME 92.7 fL (75.5-95.3); PLATELET COUNT (AUTO) 284 K/uL (179-408)
[2021-11-18 08:36] LABS: CREATININE 0.7 mg/dL (0.6-1.3); POTASSIUM 3.5 mmol/L (3.5-5.1)
[2021-11-18] MEDS: ENSURE ENLIVE (VAN) 240 ML LIQUID PO SCH ×3 (09:00→17:00)
[2021-11-18] MEDS: OLANZAPINE 5 MG TABLET PO SCH ×2 (10:07→17:12)
[2021-11-18] MEDS: LISINOPRIL 5 MG TABLET PO SCH (10:08)
[2021-11-18] MEDS: MEGESTROL ACETATE 20 MG TABLET PO SCH ×2 (10:08→17:12)
[2021-11-18] MEDS: METOPROLOL TARTRATE 25 MG TABLET PO SCH ×2 (10:09→20:04)
[2021-11-18 15:08] VITALS: BP 113/61
--- NOTE | 2021-11-18 17:42 | NUR ---
GPS: Nursing Notes: Thought Disorder: Patient is awake and responding to her name by opening her eyes when calling her name, isolative and withdrawn in her room, selectively mute, catatonic behavior, refusing to participate in therapeutic group, compliant with her medication, but poor appetite, unable to formulate a viable plan for self care, resistant with nursing care, continue to monitor for safety, continue with treatment plan.
[2021-11-18 19:50] VITALS: BP 126/64
[2021-11-18] MEDS: ATORVASTATIN 10 MG TABLET PO SCH (20:04)
[2021-11-19 07:37] VITALS: BP 105/56
[2021-11-19] MEDS: LISINOPRIL 5 MG TABLET PO SCH (09:00)
[2021-11-19] MEDS: ENSURE ENLIVE (VAN) 240 ML LIQUID PO SCH ×3 (09:00→17:00)
[2021-11-19] MEDS: METOPROLOL TARTRATE 25 MG TABLET PO SCH ×2 (09:53→20:29)
[2021-11-19] MEDS: OLANZAPINE 5 MG TABLET PO SCH ×2 (09:54→17:39)
[2021-11-19] MEDS: MEGESTROL ACETATE 20 MG TABLET PO SCH ×2 (09:54→17:39)
[2021-11-19 16:51] VITALS: BP 110/59
--- NOTE | 2021-11-19 17:29 | NUR ---
Received patient sleeping in her room. A/O X 2 -3 to person, place. Pt. is selective mute, withdrawn, isolative, catatonic, compliant with medications with prompts, flat. Denies pain. Denies SI/HI AH/VH. Requires minimal assistance with ADL. Respirations are regular and even. Emotional support given. Fall and safety precautions implemented.
[2021-11-19 19:47] VITALS: BP 106/56
[2021-11-19] MEDS: ATORVASTATIN 10 MG TABLET PO SCH (20:28)
[2021-11-20 07:32] VITALS: BP 120/73
[2021-11-20] MEDS: OLANZAPINE 5 MG TABLET PO SCH ×2 (09:51→17:28)
[2021-11-20] MEDS: METOPROLOL TARTRATE 25 MG TABLET PO SCH ×2 (09:52→20:22)
[2021-11-20] MEDS: ENSURE ENLIVE (VAN) 240 ML LIQUID PO SCH ×3 (09:52→17:28)
[2021-11-20] MEDS: LISINOPRIL 5 MG TABLET PO SCH (09:52)
[2021-11-20] MEDS: MEGESTROL ACETATE 20 MG TABLET PO SCH ×2 (09:52→17:28)
[2021-11-20 16:45] VITALS: BP 116/76
--- NOTE | 2021-11-20 17:40 | NUR ---
Gps/Fire Extinguisher Repairer- Stayed in her room most of the day, was encouraged to attend her group tx. refused, not interactive. patient fully awake at dinner time, eating dinner at this time. compliant with routine pm meds.
[2021-11-20 20:00] VITALS: BP 140/66
[2021-11-20] MEDS: ATORVASTATIN 10 MG TABLET PO SCH (20:22)
--- NOTE | 2021-11-20 22:36 | NUR ---
Received patient sleeping in her room. A/O X 2. Patient is isolative, withdrawn, flat.and compliant with medications. Patient in apparent distress. Vital signs within normal limits. Patient denies pain at this time. Patient denies SI/HI AH/VH. Requires more than minimal assistance with ADL, requires frequent prompts. Patient is continent with bowel and bladder.Pt. is encourage to verbalize concerns. Fall and safety precautions implemented.
[2021-11-21 07:30] VITALS: BP 136/84
[2021-11-21] MEDS: OLANZAPINE 5 MG TABLET PO SCH (08:31)
[2021-11-21 08:32] VITALS: BP 136/84
[2021-11-21] MEDS: MEGESTROL ACETATE 20 MG TABLET PO SCH (08:32)
[2021-11-21] MEDS: ENSURE ENLIVE (VAN) 240 ML LIQUID PO SCH ×2 (08:32→13:00)
[2021-11-21] MEDS: METOPROLOL TARTRATE 25 MG TABLET PO SCH (08:32)
[2021-11-21] MEDS: LISINOPRIL 5 MG TABLET PO SCH (08:32)
--- NOTE | 2021-11-21 09:33 | NUR ---
ABRAN Discharge Note: Pt will be discharged to [facility] [address] [place] [address] ([phone]) via Ambulance transportation at 2PM. ABRAN spoke with admin coordinator, Tavo at the facility who states they are ready to accept the patient today. Pt is aware and agreeable with discharge plans. Pts , Nicola ([phone]) is aware and agreeable with the discharge plan. Pt is alert and oriented x1(name), is unable to plan for self-care at this time; however, is willing to accept care at SNF. Pt denies any suicidal or homicidal ideation. Pt will follow-up at the facility with Psychiatrist, Dr. Cai and Collection Advisor, Dr. Burrell. Pt presents with calm mood and congruent affect. PHARMACY: PHARMACY: [facility] [phone] [address] [place] [address].
--- NOTE | 2021-11-21 13:50 | NUR ---
Gps?culinary internship- Called [facility] , report given to Nurse York. Patient has no valuable/nor any belongings with her No complaints noted , refused to eat lunch , ate well during her breakfast, no new c/o offered.
--- NOTE | 2021-11-21 14:27 | NUR ---
Gps/Crochet Machine Operator- Discharged to [facility] via ambulance, no complaints noted patient was interacting fairly well with the staff during her discharge.
== END 2021-11-21 14:20 | DRG 885 ==
LOC: ER 23:44 → GPS 11-08 02:57
PROVIDERS: ADMIT Nurse Practitioner Psychiatric/Mental Health; ATTEND Internal Medicine
DX: F29 Unspecified psychosis not due to a substance or known physiological condition (principal); G93.49 Other encephalopathy; Z68.1 Body mass index [BMI] 19.9 or less, adult; Z82.3 Family history of stroke; Z82.0 Family history of epilepsy and other diseases of the nervous system; E87.6 Hypokalemia; F32.A Depression, unspecified; F41.9 Anxiety disorder, unspecified; R62.7 Adult failure to thrive; M81.0 Age-related osteoporosis without current pathological fracture; M19.90 Unspecified osteoarthritis, unspecified site; Z87.440 Personal history of urinary (tract) infections; F03.90 Unspecified dementia, unspecified severity, without behavioral disturbance, psychotic disturbance, mood disturbance, and anxiety; I10 Essential (primary) hypertension; Z20.822 Contact with and (suspected) exposure to COVID-19
CPT/HCPCS: 36415; 71045; 83690; 84443; 85025; 93005; 97161; A4663